=== PATIENT | female | born 1970 | race Caucasian/White ===

== ENCOUNTER 2022-01-08 17:35 | Emergency (ER) | payer SELFPAY ==
[~2022-01-08] VITALS: Ht 160 cm; Wt 72.7 kg
[2022-01-08] MEDS ORDERED: LIDOCAINE 2% 5 ML JELLY TP ONE (19:30)
[2022-01-08 20:10] VITALS: BP 118/85
== END 2022-01-08 20:38 | disposition home or self-care (01) ==
LOC: EMS 17:37
DX: T16.1XXA Foreign body in right ear, initial encounter (principal); F17.210 Nicotine dependence, cigarettes, uncomplicated; X58.XXXA Exposure to other specified factors, initial encounter; Y93.89 Activity, other specified; Y92.89 Other specified places as the place of occurrence of the external cause; Y99.8 Other external cause status
CPT/HCPCS: 99284; Z7502; Z7610